=== PATIENT | female | born 2000 | race African-American/Black ===

== ENCOUNTER 2022-09-25 15:22 | Emergency (ER) | payer OTHER ==
[~2022-09-25] VITALS: Ht 170.2 cm; Wt 70.0 kg
[2022-09-25 16:03] LABS: BASOPHILS % (AUTO) 0.7 % (0.0-2.0); EOSINOPHILS % (AUTO) 3.2 % (1.0-6.0); HEMATOCRIT 41.4 % (36-46); HEMOGLOBIN 13.4 g/dL (12.0-16.0); LYMPHOCYTES # (AUTO) 1.8 K/uL (1.0-4.8); LYMPHOCYTES % (AUTO) 34.6 % (22.0-44.0); MEAN CORPUSCULAR HEMOGLOBIN 28.6 pg (26.0-34.0); MEAN CORPUSCULAR HGB CONC 32.3 G/dL (31.0-37.0); MEAN CORPUSCULAR VOLUME 89 fL (80-100); MONOCYTES # (AUTO) 0.6 K/uL (0.1-1.0); MONOCYTES % (AUTO) 10.9 % (2.0-9.0); NEUTROPHILS # (AUTO) 2.6 K/uL (1.8-7.7); NEUTROPHILS % (AUTO) 50.6 % (40.0-70.0); PLATELET COUNT (AUTO) 267 K/uL (150-450); RED BLOOD CELL COUNT(AUTO) 4.68 MIL/uL (4.00-5.20); RED CELL DISTRIBUTION WIDTH 12.8 % (11.5-14.5)
[2022-09-25 16:04] LABS: APPEARANCE,URINE CLEAR (CLEAR); BILIRUBIN,URINE NEGATIVE (NEGATIVE); GLUCOSE, URINE (UA) NEGATIVE (NEGATIVE); KETONES,URINE NEGATIVE (NEGATIVE); LEUKOCYTE ESTERASE ,URINE NEGATIVE (NEGATIVE); NITRATE,URINE NEGATIVE (NEGATIVE); OCCULT BLOOD,URINE NEGATIVE (NEGATIVE); PH,URINE 6.5 (5.0-8.0); PROTEIN,URINE NEGATIVE (NEGATIVE); SPECIFIC GRAVITIY, URINE 1.014 (1.003-1.030); UROBILINOGEN,URINE <=1.0 mg/dL (<=1.0)
[2022-09-25 16:09] LABS: ANION GAP 9 mmol/L (8-16); CALCIUM, TOTAL 9.7 mg/dL (8.8-10.5); CARBON DIOXIDE 30 mmol/L (22-29); CHLORIDE 101 mmol/L (98-107); CREATININE 0.83 mg/dL (0.60-1.30); GLOMERULAR FILTR. RATE CALC > 60 mL/min (>60); GLUCOSE,RANDOM 97 mg/dL (70-110); POTASSIUM 4.3 mmol/L (3.5-5.1); SODIUM SERUM 140 mmol/L (136-145)
[2022-09-25 16:14] LABS: ALANINE AMINOTRANSFERASE 20 U/L (12-78); ALKALINE PHOSPHATASE 63 U/L (46-116); ASPARTATE AMINOTRANSFERASE 20 U/L (15-37); BILIRUBIN,TOTAL 0.3 mg/dL (0.1-1.0); TOTAL PROTEIN, SERUM 8.6 g/dL (6.4-8.2)
[2022-09-25] MEDS ORDERED: TraMADol HCL 50 MG TABLET PO ONE (17:15)
[2022-09-25] MEDS ORDERED: KETOROLAC TROMETHAMINE 30 MG/ML VIAL IM ONE (17:15)
[2022-09-25] MEDS ORDERED: CYCL-448 PO (17:51)
[2022-09-25 17:53] VITALS: BP 122/81
== END 2022-09-25 17:54 | disposition home or self-care (01) ==
LOC: EMS 15:26
DX: S20.20XA Contusion of thorax, unspecified, initial encounter (principal); V49.9XXA Car occupant (driver) (passenger) injured in unspecified traffic accident, initial encounter; Y93.89 Activity, other specified; Y92.89 Other specified places as the place of occurrence of the external cause; Y99.8 Other external cause status
CPT/HCPCS: 99285; 70450; 80053; 81003; 84703; 85025; 36415; 71101; 72125; 96372; J1885

== ENCOUNTER 2022-10-15 17:07 | Emergency (ER) | payer OTHER ==
[~2022-10-15] VITALS: Ht 167.6 cm; Wt 70.0 kg
[~2022-10-15 17:07] MED LIST: CYCL-448 PO
[2022-10-15 17:14] VITALS: BP 107/70
[2022-10-15] MEDS ORDERED: CefTRIAXone SODIUM 1 GM/VIAL IM ONE (18:00)
[2022-10-15] MEDS ORDERED: LIDOCAINE/PF 1% 2 ML VIAL IM ONE (18:00)
[2022-10-15] MEDS ORDERED: AZITHROMYCIN 500 MG TABLET PO ONE (18:00)
== END 2022-10-15 18:31 | disposition home or self-care (01) ==
LOC: EMS 17:08
DX: A56.8 Sexually transmitted chlamydial infection of other sites (principal)
CPT/HCPCS: 99283; 87491; 87591; 96372; J0696; J3490; Q9967